=== PATIENT | male | born 1985 | race Caucasian/White ===

== ENCOUNTER 2017-12-28 16:18 | Emergency (ER) | payer SELFPAY ==
--- NOTE | 2017-12-28 17:58 | ED Physician Documentation ---
PD HPI HEENT - Stated complaint Stated Complaint: VOMITING/DAMON/RASH - Chief complaint Chief Complaint: Neuro - History obtained from History obtained from: Patient - History of Present Illness Timing - onset: Yesterday Timing - details: Gradual onset, Still present (noted rash on tip of nose initially, now with it left cheek of face. Has some pain in face/head left side. Denies feeling of eye irritation. Some general aches. Mild cough. Nausea with vomited couple of times. No diarrhea.), Waxing and waning Location: Nose (tip of nose and left facial cheek) Associated symptoms: Headache (left facial area and alevism to back of neck with the rash around that area.). No: Fever (but feeling of aches), Swollen nodes, Cough Similar symptoms before: Has not had sx before Recently seen: Not recently seen Review of Systems Constitutional: reports: Myalgias, Fatigue. denies: Fever Nose: denies: Rhinorrhea / runny nose, Congestion Throat: denies: Sore throat Respiratory: reports: Dyspnea, Cough, Wheezing GI: reports: Nausea. denies: Vomiting Skin: reports: Rash Musculoskeletal: denies: Neck pain, Back pain Neurologic: reports: Headache. denies: Confused, Altered mental status, Head injury PD PAST MEDICAL HISTORY - Past Medical History Past Medical History: Yes Cardiovascular: None Respiratory: None Neuro: Other Endocrine/Autoimmune: None GI: None : None HEENT: None Psych: None Musculoskeletal: None Derm: None - Past Surgical History Past Surgical History: Yes Ortho: Arthroscopic surgery HEENT: Other - Present Medications Home Medications: Ambulatory Orders Medication Instructions Recorded Confirmed Acyclovir 800 mg PO 5XD #30 tablet 12/28/17 Dexamethasone [Decadron] 4 mg PO DAILY #5 tablet 12/28/17 Gabapentin 600 mg PO TID PRN #30 tablet 12/28/17 Gabapentin [Neurontin] 600 mg PO TID 12/28/17 12/28/17 HYDROcod/ACETAM 5/325 [[place] 5/325] 1 tab PO Q6H PRN #15 tablet 12/28/17 Mupirocin 1 applic TP TID #15 oint...g. 12/28/17 Sumatriptan Succinate [Imitrex] 4 mg SQ PRN 12/28/17 - Allergies Allergies/Adverse Reactions: Allergies Allergy/AdvReac Type Severity Reaction Status Date / Time cephalexin [From Keflex] Allergy Severe Anaphylaxis Verified 12/28/17 16:31 - Social History Does the pt smoke?: No Smoking Status: Former smoker Does the pt drink ETOH?: Yes Does the pt have substance abuse?: Yes Substance Use and Type: Marijuana - Immunizations Immunizations are current?: Yes PD ED PE NORMAL - Vitals Vital signs reviewed: Yes - General General: Alert and oriented X 3, No acute distress, Well developed/nourished - HEENT HEENT: PERRL, EOMI, Ears normal, Pharynx benign, Other (left side tip of nose and left cheek with small patches of tender, red based, small vesicular rash, without connection between patches but is tender. ) - Neck Neck: Supple, no meningeal sign, No adenopathy - Cardiac Cardiac: RRR, No murmur - Respiratory Respiratory: No respiratory distress, Clear bilaterally - Abdomen Abdomen: Soft, Non tender - Derm Derm: Normal color, Warm and dry, No rash Results - Vitals Vitals: Oxygen O2 Source Room air PD MEDICAL DECISION MAKING - ED course Complexity details: reviewed results, considered differential (the rash patches on nose and cheek look herpetic or shingles. Consider patches of impetigo. Can get culture. But would treat as viral. No eye pain (concern since rash on left tip of the nose).), d/w patient Departure - Departure Disposition: 01 Home, Self Care Clinical Impression: Facial rash Headache Qualifiers: Headache type: unspecified Headache chronicity pattern: acute headache Intractability: not intractable Qualified Code(s): R51 - Headache Condition: Stable Record reviewed to determine appropriate education?: Yes Instructions: ED Cephalgia Unspecified, ED Shingles Follow-Up: [facility] [place] [Provider Group] Prescriptions: Acyclovir 800 mg PO 5XD #30 tablet Dexamethasone [Decadron] 4 mg PO DAILY #5 tablet Gabapentin 600 mg PO TID PRN #30 tablet PRN Reason: Pain HYDROcod/ACETAM 5/325 [[place] 5/325] 1 tab PO Q6H PRN #15 tablet PRN Reason: Pain Mupirocin 1 applic TP TID #15 oint...g. Comments: Cleanse the facial infections to 3 times a day with soap and water and apply mupirocin antibiotic ointment. I think the rash areas as well as the pain in the face and head are from a viral infection of either shingles or herpes. We did do a culture type test that will result in 2-3 days to verify this. Meanwhile we will treated with antiviral acyclovir 5 times a day for the next 6 days. Dexamethasone anti-inflammatory daily for 5 more days. Add hydrocodone if needed for pain. Off work for couple more days. Continue your other usual medications. Forms: Activity restrictions Discharge Date/Time: 12/28/17 19:29
[2017-12-28 18:39] VITALS: BP 111/73
[2017-12-28] MEDS ORDERED: DEXAMETHASONE 10 MG/ML VIAL PO STA (18:50)
[2017-12-28] MEDS ORDERED: IBUPROFEN 600 MG TABLET PO STA (18:50)
[2017-12-28] MEDS ORDERED: ACYCLOVIR 200 MG CAPSULE PO STA (18:50)
[2017-12-28] MEDS ORDERED: MUPIROCIN 2% OINT 1 GM TOP STA (18:50)
[2017-12-31 10:01] LABS: HSV 2 DNA NOT DETECTED; SOURCE FACE
== END 2017-12-28 19:29 | disposition home or self-care (01) ==
LOC: ED 16:18
DX: R21 Rash and other nonspecific skin eruption (principal); R51 Headache; Z87.891 Personal history of nicotine dependence
CPT/HCPCS: 87529; 99283; A9270

== ENCOUNTER 2018-01-25 23:19 | Emergency (ER) | payer OTHER ==
[2018-01-25] MEDS ORDERED: RABIES VACCINE 2.5 UNIT SYRINGE IM ONE (23:39)
[2018-01-25] MEDS ORDERED: RABIES IMMUNE GLOBULIN 300 UNITS/2 ML IM STA (23:39)
--- NOTE | 2018-01-25 23:47 | ED Physician Documentation ---
PD HPI ANIMAL BITE - Stated complaint Stated Complaint: BAT BITE TO SHOULDER - Chief complaint Chief Complaint: General - History obtained from History obtained from: Patient - History of Present Illness Details of the event: Other animal, Animal control notified, Other (bat) Timing - onset: Yesterday Timing - details: Abrupt onset Recently seen: Not recently seen - Additional information Additional information: Patient is a 32 year old male with no significant past medical history who is presenting to the emergency department after being exposed to a bat. Patient states that he was sleeping last nigh when he felt something on his shoulder. Patient states that he swatted at it and it stretched out its wings. patient reports that he turned on the lights and the bat came back towards him. He was able to catch what he thinks is the same bat and kill it. Patient was sleeping without a shirt but did not feel any bites. Review of Systems Constitutional: denies: Fever, Chills Eyes: reports: Reviewed and negative Ears: reports: Reviewed and negative Nose: reports: Reviewed and negative Throat: reports: Reviewed and negative Cardiac: reports: Reviewed and negative Respiratory: reports: Reviewed and negative GI: reports: Reviewed and negative : reports: Reviewed and negative Skin: reports: Reviewed and negative Musculoskeletal: reports: Reviewed and negative Neurologic: reports: Reviewed and negative Psychiatric: reports: Reviewed and negative Endocrine: reports: Reviewed and negative Immunocompromised: reports: Reviewed and negative PD PAST MEDICAL HISTORY - Past Medical History Cardiovascular: None Respiratory: None Neuro: Other Endocrine/Autoimmune: None GI: None : None HEENT: None Psych: None Musculoskeletal: None Derm: None - Past Surgical History Past Surgical History: Yes Ortho: Arthroscopic surgery HEENT: Other - Present Medications Home Medications: Ambulatory Orders Medication Instructions Recorded Confirmed Acyclovir 800 mg PO 5XD #30 tablet 12/28/17 Dexamethasone [Decadron] 4 mg PO DAILY #5 tablet 12/28/17 Gabapentin 600 mg PO TID PRN #30 tablet 12/28/17 Gabapentin [Neurontin] 600 mg PO TID 12/28/17 12/28/17 HYDROcod/ACETAM 5/325 [[place] 5/325] 1 tab PO Q6H PRN #15 tablet 12/28/17 Mupirocin 1 applic TP TID #15 oint...g. 12/28/17 Sumatriptan Succinate [Imitrex] 4 mg SQ PRN 12/28/17 - Allergies Allergies/Adverse Reactions: Allergies Allergy/AdvReac Type Severity Reaction Status Date / Time cephalexin [From Keflex] Allergy Severe Anaphylaxis Verified 12/28/17 16:31 - Social History Does the pt smoke?: No Smoking Status: Former smoker Does the pt drink ETOH?: Yes Does the pt have substance abuse?: Yes - Immunizations Immunizations are current?: Yes PD ED PE NORMAL - Vitals Vital signs reviewed: Yes - General General: Alert and oriented X 3 - HEENT HEENT: Atraumatic - Neck Neck: Supple, no meningeal sign - Cardiac Cardiac: RRR - Respiratory Respiratory: No respiratory distress - Abdomen Abdomen: Soft - Derm Derm: Normal color - Extremities Extremities: No deformity - Neuro Neuro: Alert and oriented X 3 Eye Opening: Spontaneous Motor: Obeys Commands Verbal: Oriented GCS Score: 15 - Psych Psych: Normal mood Results - Vitals Vitals: Vital Signs - 24 hr 01/25/18 23:30 Temperature 36.7 C Heart Rate 60 Respiratory 17 Rate Blood Pressure 142/80 H O2 Saturation 100 Oxygen O2 Source Room air PD MEDICAL DECISION MAKING - ED course Complexity details: reviewed old records, reviewed results, re-evaluated patient , considered differential, d/w patient ED course: Patient was seen and examined at bedside. There were no bite luz but due to the story patient was treated with rabies vaccine. dispatch was contacted and case was discussed with the . they stated that they should freeze the bat and animal control will come test it in the morning. Patient required no further inpatient work up and was stable for discharge with outpatient follow up. Departure - Departure Disposition: 01 Home, Self Care Clinical Impression: Exposure to bat without known bite Condition: Good Instructions: Rabies Vaccine suspension for injection, Rabies Immune Globulin human RIG solution for injection Follow-Up: primary,care provider [Other] Comments: Today you were treated with the rabies vaccine and immunoglobin. Today is considered day 0 and you will need the next dose(s) on day 3, 7,14 if the tests are performed on the bat and they are negative you will not need any further testing. 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
[2018-01-26 00:16] VITALS: BP 121/60
== END 2018-01-26 00:14 | disposition home or self-care (01) ==
LOC: ED 23:19
DX: Z20.3 Contact with and (suspected) exposure to rabies (principal); Z23 Encounter for immunization; Z87.891 Personal history of nicotine dependence
CPT/HCPCS: 1040M; 90376; 90471; 90675; 96372; 99283

== ENCOUNTER 2018-01-28 19:04 | Emergency (ER) | payer OTHER ==
[2018-01-28 19:25] VITALS: BP 107/59
[2018-01-28] MEDS ORDERED: RABIES VACCINE 2.5 UNIT SYRINGE IM ONE (20:22)
--- NOTE | 2018-01-28 20:26 | ED Physician Documentation ---
History of Present Illness - Stated complaint Stated Complaint: RABIES SHOT NEEDED - Chief complaint Chief Complaint: General - History obtained from History obtained from: Patient - History of Present Illness Timing: Other (He is working in [place], who lives in [place]. He was exposed to a bat. He got first rabies vaccine and immunoglobulin 3 days ago and returns as directed for vaccination. No specific complaints but needs a refill of his gabapentin. Animal control was contacted but never showed up to take the animal so no testing is available and he will have to complete the series.) Review of Systems Constitutional: reports: Reviewed and negative Cardiac: reports: Reviewed and negative Respiratory: reports: Reviewed and negative PD PAST MEDICAL HISTORY - Past Medical History Past Medical History: Yes Cardiovascular: None Respiratory: None Neuro: Other Endocrine/Autoimmune: None GI: None : None HEENT: None Psych: None Musculoskeletal: None Derm: None - Past Surgical History Past Surgical History: Yes Ortho: Arthroscopic surgery HEENT: Other - Present Medications Home Medications: Ambulatory Orders Medication Instructions Recorded Confirmed Acyclovir 800 mg PO 5XD #30 tablet 12/28/17 Dexamethasone [Decadron] 4 mg PO DAILY #5 tablet 12/28/17 Gabapentin 600 mg PO TID PRN #30 tablet 12/28/17 Gabapentin [Neurontin] 600 mg PO TID 12/28/17 12/28/17 HYDROcod/ACETAM 5/325 [[place] 5/325] 1 tab PO Q6H PRN #15 tablet 12/28/17 Mupirocin 1 applic TP TID #15 oint...g. 12/28/17 Sumatriptan Succinate [Imitrex] 4 mg SQ PRN 12/28/17 Gabapentin 600 mg PO TID #30 tablet 01/28/18 - Allergies Allergies/Adverse Reactions: Allergies Allergy/AdvReac Type Severity Reaction Status Date / Time cephalexin [From Keflex] Allergy Severe Anaphylaxis Verified 01/28/18 19:25 - Social History Does the pt smoke?: No Smoking Status: Never smoker Does the pt drink ETOH?: Yes Does the pt have substance abuse?: Yes - Immunizations Immunizations are current?: Yes - POLST Patient has POLST: No PD ED PE NORMAL - Vitals Vital signs reviewed: Yes - General General: Alert and oriented X 3, No acute distress - Neuro Neuro: Alert and oriented X 3, Normal speech - Psych Psych: Normal mood, Normal affect Results - Vitals Vitals: Vital Signs - 24 hr 01/28/18 19:20 Temperature 36 C L Heart Rate 69 Respiratory 16 Rate Blood Pressure 107/59 L O2 Saturation 98 Oxygen O2 Source Room air Departure - Departure Disposition: 01 Home, Self Care Clinical Impression: Rabies vaccine adverse reaction Qualifiers: Encounter type: initial encounter Qualified Code(s): T50.B95A - Adverse effect of other viral vaccines, initial encounter Condition: Good Record reviewed to determine appropriate education?: Yes Prescriptions: Gabapentin 600 mg PO TID #30 tablet Comments: Return or see a local physician for a third rabies vaccination on the , and of the fourth rabies vaccination on the .
== END 2018-01-28 20:32 | disposition home or self-care (01) ==
LOC: ED 19:04
DX: Z23 Encounter for immunization (principal); Z20.3 Contact with and (suspected) exposure to rabies
CPT/HCPCS: 90471; 96372; 99283

== ENCOUNTER 2018-02-02 18:56 | Emergency (ER) | payer OTHER ==
--- NOTE | 2018-02-02 21:49 | ED Physician Documentation ---
PD HPI ANIMAL BITE - Stated complaint Stated Complaint: RABIES VAC - Chief complaint Chief Complaint: General - History obtained from History obtained from: Patient - History of Present Illness Recently seen: Emergency Dept (here for next in series of rabies vaccines. No problems from initial 2 ones. No general symptoms. Was low risk exposure of a bat landed on him without bites.) PD PAST MEDICAL HISTORY - Past Medical History Cardiovascular: None Respiratory: None Neuro: Other Endocrine/Autoimmune: None GI: None : None HEENT: None Psych: None Musculoskeletal: None Derm: None - Past Surgical History Past Surgical History: Yes Ortho: Arthroscopic surgery HEENT: Other - Present Medications Home Medications: Ambulatory Orders Medication Instructions Recorded Confirmed Acyclovir 800 mg PO 5XD #30 tablet 12/28/17 Dexamethasone [Decadron] 4 mg PO DAILY #5 tablet 12/28/17 Gabapentin 600 mg PO TID PRN #30 tablet 12/28/17 Gabapentin [Neurontin] 600 mg PO TID 12/28/17 12/28/17 HYDROcod/ACETAM 5/325 [[place] 5/325] 1 tab PO Q6H PRN #15 tablet 12/28/17 Mupirocin 1 applic TP TID #15 oint...g. 12/28/17 Sumatriptan Succinate [Imitrex] 4 mg SQ PRN 12/28/17 Gabapentin 600 mg PO TID #30 tablet 01/28/18 - Allergies Allergies/Adverse Reactions: Allergies Allergy/AdvReac Type Severity Reaction Status Date / Time cephalexin [From Keflex] Allergy Severe Anaphylaxis Verified 01/28/18 19:25 - Social History Does the pt smoke?: No Smoking Status: Never smoker Does the pt drink ETOH?: Yes Does the pt have substance abuse?: Yes - Immunizations Immunizations are current?: Yes - POLST Patient has POLST: No Results - Vitals Vitals: Oxygen O2 Source Room air PD MEDICAL DECISION MAKING - ED course Complexity details: considered differential (getting the next in series of rabies vaccinations as previously delineated. No general symptoms from vaccine obvious. ), d/w patient Departure - Departure Disposition: 01 Home, Self Care Clinical Impression: Exposure to bat without known bite, Need for rabies vaccination Condition: Stable Record reviewed to determine appropriate education?: Yes Instructions: Rabies Comments: Tylenol or ibuprofen if needed for pains. Return for the fourth in the series in a week as previously outlined. Recheck if other problems develop. Discharge Date/Time: 02/02/18 22:04
[2018-02-02] MEDS ORDERED: RABIES VACCINE 2.5 UNIT SYRINGE IM ONE (21:52)
[2018-02-02 22:05] VITALS: BP 105/48
== END 2018-02-02 22:04 | disposition home or self-care (01) ==
LOC: ED 18:56
DX: Z20.3 Contact with and (suspected) exposure to rabies (principal); Z23 Encounter for immunization
CPT/HCPCS: 90471; 96372; 99283

== ENCOUNTER 2018-02-09 20:51 | Emergency (ER) | payer OTHER ==
--- NOTE | 2018-02-09 20:57 | ED Physician Documentation ---
ED Addendum - Addendum Addendum: 02/09/18 20:59 He is here for the fourth of the series post exposure rabies vaccine. He has not had any complications from the prior vaccinations (no rash, hives, local reaction, other problems.) He will get his last vaccine and follow-up with his primary if needed.
[2018-02-09] MEDS ORDERED: RABIES VACCINE 2.5 UNIT SYRINGE IM ONE (20:59)
[2018-02-09 21:58] VITALS: BP 135/81
== END 2018-02-09 21:57 | disposition home or self-care (01) ==
LOC: ED 20:51
DX: Z20.3 Contact with and (suspected) exposure to rabies (principal); Z23 Encounter for immunization
CPT/HCPCS: 90471; 96372; 99283

== ENCOUNTER 2018-03-05 19:07 | Emergency (ER) | payer SELFPAY ==
--- NOTE | 2018-03-05 20:32 | ED Physician Documentation ---
PD HPI HEADACHE - Stated complaint Stated Complaint: SWEAT/DAMON/DALTON - Chief complaint Chief Complaint: Neuro - History obtained from History obtained from: Patient - History of Present Illness Timing - onset: Yesterday Timing - onset during: Rest Timing - details: Gradual onset, Now resolved Location: Front Associated symptoms: No: Fever, Nausea, Vomiting Improved by: Rest, Meds Similar symptoms before: Work up / diagnostics, Treatment Recently seen: Not recently seen - Additional information Additional information: patient is a 32 year old male with a history of migraines who is here working. Patient states that he had a migraine yesterday but it resolved with imitrix today. patient states that he came in because he needed a work note. Patient states that he is feeling well today. Review of Systems Ten Systems: 10 systems reviewed and negative PD PAST MEDICAL HISTORY - Past Medical History Past Medical History: Yes Cardiovascular: None Respiratory: None Neuro: Other Endocrine/Autoimmune: None GI: None : None HEENT: Other Psych: None Musculoskeletal: None Derm: None Other Past Medical History: states brain tumor, Right eye "repair." - Past Surgical History Past Surgical History: Yes Ortho: Arthroscopic surgery HEENT: Other - Present Medications Home Medications: Ambulatory Orders Medication Instructions Recorded Confirmed Acyclovir 800 mg PO 5XD #30 tablet 12/28/17 Dexamethasone [Decadron] 4 mg PO DAILY #5 tablet 12/28/17 Gabapentin 600 mg PO TID PRN #30 tablet 12/28/17 Gabapentin [Neurontin] 600 mg PO TID 12/28/17 12/28/17 HYDROcod/ACETAM 5/325 [[place] 5/325] 1 tab PO Q6H PRN #15 tablet 12/28/17 Mupirocin 1 applic TP TID #15 oint...g. 12/28/17 Sumatriptan Succinate [Imitrex] 4 mg SQ PRN 12/28/17 Gabapentin 600 mg PO TID #30 tablet 01/28/18 Gabapentin [Neurontin] 300 mg PO TID #10 capsule 03/05/18 - Allergies Allergies/Adverse Reactions: Allergies Allergy/AdvReac Type Severity Reaction Status Date / Time cephalexin [From Keflex] Allergy Severe Anaphylaxis Verified 03/05/18 19:28 - Social History Does the pt smoke?: No Smoking Status: Never smoker Does the pt drink ETOH?: Yes Does the pt have substance abuse?: Yes Substance Use and Type: Marijuana - Immunizations Immunizations are current?: Yes - POLST Patient has POLST: No PD ED PE NORMAL - Vitals Vital signs reviewed: Yes - General General: Alert and oriented X 3, No acute distress - HEENT HEENT: Atraumatic - Cardiac Cardiac: RRR - Respiratory Respiratory: No respiratory distress - Abdomen Abdomen: Non distended - Derm Derm: Normal color, No rash - Extremities Extremities: No deformity - Neuro Neuro: Alert and oriented X 3, No motor deficit, Normal speech Eye Opening: Spontaneous Motor: Obeys Commands Verbal: Oriented GCS Score: 15 Results - Vitals Vitals: Vital Signs - 24 hr 03/05/18 03/05/18 19:25 21:03 Temperature 36.0 C L 36.7 C Heart Rate 92 89 Respiratory 16 20 Rate Blood Pressure 126/79 115/76 O2 Saturation 96 97 Oxygen O2 Source Room air PD MEDICAL DECISION MAKING - ED course Complexity details: reviewed old records, considered differential, d/w patient ED course: Patient was seen and examined at bedside. patient was well appearing and in no distress. Patient required no intervention at this time and was stable for discharge with outpatient follow up. Departure - Departure Disposition: 01 Home, Self Care Clinical Impression: Headache, Migraine Condition: Good Instructions: ED Headache Migraine Follow-Up: primary,care provider [Other] - As Needed Prescriptions: Gabapentin [Neurontin] 300 mg PO TID #10 capsule Comments: You should try to stay well hydrated and get plenty of sleep as those can be two of the major triggers of migraines. You should follow up with your doctor if your symptoms become more frequent. You may return to the emergency department at any time for new, worsening or uncontrollable symptoms. Forms: Activity restrictions Discharge Date/Time: 03/05/18 21:03
[2018-03-05 21:04] VITALS: BP 115/76
== END 2018-03-05 21:03 | disposition home or self-care (01) ==
LOC: ED 19:07
DX: G43.909 Migraine, unspecified, not intractable, without status migrainosus (principal)
CPT/HCPCS: 99283; 99284

== ENCOUNTER 2018-04-29 13:06 | Emergency (ER) | payer OTHER ==
--- NOTE | 2018-04-29 14:07 | ED Physician Documentation ---
History of Present Illness - Stated complaint Stated Complaint: RT SIDE BODY PX - Chief complaint Chief Complaint: General - History obtained from History obtained from: Patient - History of Present Illness Timing: Today (He works as a boat yard, he had a heavy heavy door fall on the back of his Right elbow and then hits over the back of the right hip earlier today and has moderate pain but declines pain medication. He was seen at an urgent care and referred here for x-rays. No head or neck injury. He is able to walk and bear weight and Declines pain medication.) Review of Systems Constitutional: reports: Reviewed and negative Cardiac: reports: Reviewed and negative Respiratory: reports: Reviewed and negative PD PAST MEDICAL HISTORY - Past Medical History Past Medical History: No Cardiovascular: None Respiratory: None Neuro: None Endocrine/Autoimmune: None GI: None : None HEENT: None Psych: None Musculoskeletal: None Derm: None - Past Surgical History Past Surgical History: Yes Ortho: Arthroscopic surgery HEENT: Other - Present Medications Home Medications: Ambulatory Orders Medication Instructions Recorded Confirmed Acyclovir 800 mg PO 5XD #30 tablet 12/28/17 Dexamethasone [Decadron] 4 mg PO DAILY #5 tablet 12/28/17 Gabapentin 600 mg PO TID PRN #30 tablet 12/28/17 Gabapentin [Neurontin] 600 mg PO TID 12/28/17 12/28/17 HYDROcod/ACETAM 5/325 [[place] 5/325] 1 tab PO Q6H PRN #15 tablet 12/28/17 Mupirocin 1 applic TP TID #15 oint...g. 12/28/17 Sumatriptan Succinate [Imitrex] 4 mg SQ PRN 12/28/17 Gabapentin 600 mg PO TID #30 tablet 01/28/18 Gabapentin [Neurontin] 300 mg PO TID #10 capsule 03/05/18 Gabapentin 600 mg PO BID #30 tablet 04/29/18 Sumatriptan Succinate [Imitrex] 6 mg SQ ONCE PRN #8 cartridge 04/29/18 - Allergies Allergies/Adverse Reactions: Allergies Allergy/AdvReac Type Severity Reaction Status Date / Time cephalexin [From Keflex] Allergy Severe Anaphylaxis Verified 03/05/18 19:28 - Social History Does the pt smoke?: Yes Smoking Status: Current every day smoker Does the pt drink ETOH?: Yes Does the pt have substance abuse?: No - Immunizations Immunizations are current?: Yes - POLST Patient has POLST: No PD ED PE NORMAL - Vitals Vital signs reviewed: Yes - General General: Alert and oriented X 3, No acute distress - HEENT HEENT: PERRL, EOMI - Neck Neck: Supple, no meningeal sign, No bony TTP - Extremities Extremities: Other (Mild tenderness over the posterior supracondylar area without limited range of motion on the right or ecchymosis. He does have a little ecchymosis in the right paralumbar area without any tenderness or rib tenderness or hip tenderness.) - Neuro Neuro: Alert and oriented X 3, Normal speech Results - Vitals Vitals: Vital Signs - 24 hr 04/29/18 04/29/18 13:15 14:55 Temperature 36.4 C L 36.5 C Heart Rate 96 64 Respiratory 18 17 Rate Blood Pressure 110/70 105/61 O2 Saturation 97 99 Oxygen O2 Source Room air - Rads (name of study) R elbow and hip XRs Radiology: EMP read contemporaneously (NAD) PD MEDICAL DECISION MAKING - ED course ED course: He needed refills of his Imitrex and gabapentin as well and limited refills for these were given. Primary care follow-up was Advised. - Sepsis Event Vital Signs: Vital Signs - 24 hr 04/29/18 04/29/18 13:15 14:55 Temperature 36.4 C L 36.5 C Heart Rate 96 64 Respiratory 18 17 Rate Blood Pressure 110/70 105/61 O2 Saturation 97 99 Oxygen O2 Source Room air Departure - Departure Disposition: 01 Home, Self Care Clinical Impression: Contusion of elbow, right Qualifiers: Encounter type: initial encounter Qualified Code(s): S50.01XA - Contusion of right elbow, initial encounter Back contusion Qualifiers: Encounter type: initial encounter Laterality: right Qualified Code(s): S20.221A - Contusion of right back wall of thorax, initial encounter Condition: Good Record reviewed to determine appropriate education?: Yes Instructions: ED Contusion Back Follow-Up: [facility] [Provider Group] [facility] [Provider Group] [facility] [Provider Group] Prescriptions: Gabapentin 600 mg PO BID #30 tablet Sumatriptan Succinate [Imitrex] 6 mg SQ ONCE PRN #8 cartridge PRN Reason: Headache Comments: Followup with your physician in 1 week if not better Forms: Activity restrictions Discharge Date/Time: 04/29/18 15:00
--- NOTE | 2018-04-29 14:41 | XRAY Preliminary Report ---
Exam: XR ELBOW 3 VIEW RT IMPRESSION: Normal elbow radiography. [facility] SITE ID: [id number]
--- NOTE | 2018-04-29 14:41 | XRAY Report ---
EXAM: RIGHT ELBOW RADIOGRAPHY EXAM DATE: 04/29/2018 02:28 PM. CLINICAL HISTORY: Right elbow pain. COMPARISON: None. TECHNIQUE: 3 views. FINDINGS: Bones: Normal. No fractures or bone lesions. Joints: Normal. No effusion. No subluxation. Soft Tissues: Normal. No soft tissue swelling. IMPRESSION: Normal elbow radiography. [facility] Referring Provider Line: [phone] SITE ID: [id number]
--- NOTE | 2018-04-29 14:43 | XRAY Preliminary Report ---
Exam: XR HIP W/PELVIS 2-3V RT IMPRESSION: No acute findings. Small paralabral calcification is seen, nonspecific but potentially re lated to underlying chronic labral pathology. [facility] SITE ID: [id number]
--- NOTE | 2018-04-29 14:43 | XRAY Report ---
EXAM: RIGHT HIP AND PELVIS RADIOGRAPHY EXAM DATE: 04/29/2018 02:27 PM. HISTORY: Right hip pain. COMPARISONS: None. TECHNIQUE: 1 view of the pelvis and 1 view of the hip. FINDINGS: Bones: No fracture or bone lesion is demonstrated. Joints: Focal paralabral calcification is seen laterally. There is no significant joint space narrowi ng. No subchondral sclerosis or cystic changes are seen. Soft Tissues: Normal. No soft tissue swelling. IMPRESSION: No acute findings. Small paralabral calcification is seen, nonspecific but potentially re lated to underlying chronic labral pathology. [facility] Referring Provider Line: [phone] SITE ID: [id number]
[2018-04-29 14:56] VITALS: BP 105/61
== END 2018-04-29 15:00 | disposition home or self-care (01) ==
LOC: ED 13:06
DX: S50.01XA Contusion of right elbow, initial encounter (principal); S20.221A Contusion of right back wall of thorax, initial encounter; W20.8XXA Other cause of strike by thrown, projected or falling object, initial encounter; Y92.62 Dock or shipyard as the place of occurrence of the external cause; Y99.0 Civilian activity done for income or pay; F17.200 Nicotine dependence, unspecified, uncomplicated
CPT/HCPCS: 99283

== ENCOUNTER 2018-06-11 03:21 | Emergency (ER) | payer BC ==
--- NOTE | 2018-06-11 04:28 | ED Physician Documentation ---
History of Present Illness - Stated complaint Stated Complaint: PRESCRIP REFILL - Chief complaint Chief Complaint: General - History obtained from History obtained from: Patient - History of Present Illness Timing: How many days ago (2) Pain level max: 8 Pain level now: 0 - Additonal information Additional information: had migraine DAMON 2 days ago with nausea, vomiting. this has resolved completely. he missed work because of the headache, presents requesting work excuse as well as refill for imitrex. says he recently returned from [place] where he accidentally left the imitrex prescribed last month from this ED. 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 Review of Systems GI: reports: Nausea (resolved), Vomiting (resolved). denies: Abdominal Pain Neurologic: reports: Headache (resolved) PD PAST MEDICAL HISTORY - Past Medical History Past Medical History: Yes Cardiovascular: None Respiratory: None Neuro: Migraines Endocrine/Autoimmune: None GI: None : None HEENT: None Psych: None Musculoskeletal: None Derm: None - Past Surgical History Past Surgical History: Yes Ortho: Arthroscopic surgery HEENT: Other - Present Medications Home Medications: Ambulatory Orders Medication Instructions Recorded Confirmed Acyclovir 800 mg PO 5XD #30 tablet 12/28/17 Dexamethasone [Decadron] 4 mg PO DAILY #5 tablet 12/28/17 Gabapentin 600 mg PO TID PRN #30 tablet 12/28/17 Gabapentin [Neurontin] 600 mg PO TID 12/28/17 12/28/17 HYDROcod/ACETAM 5/325 [Beals 5/325] 1 tab PO Q6H PRN #15 tablet 12/28/17 Mupirocin 1 applic TP TID #15 oint...g. 12/28/17 Sumatriptan Succinate [Imitrex] 4 mg SQ PRN 12/28/17 Gabapentin 600 mg PO TID #30 tablet 01/28/18 Gabapentin [Neurontin] 300 mg PO TID #10 capsule 03/05/18 Gabapentin 600 mg PO BID #30 tablet 04/29/18 Sumatriptan Succinate [Imitrex] 6 mg SQ ONCE PRN #8 cartridge 04/29/18 Gabapentin 600 mg PO BID PRN #20 tablet 06/11/18 Sumatriptan Succinate [Imitrex] 6 mg SQ ONCE PRN #10 pen.[email or web address] 06/11/18 - Allergies Allergies/Adverse Reactions: Allergies Allergy/AdvReac Type Severity Reaction Status Date / Time cephalexin [From Keflex] Allergy Severe Anaphylaxis Verified 06/11/18 03:27 - Social History Does the pt smoke?: Yes Smoking Status: Current every day smoker Does the pt drink ETOH?: Yes Does the pt have substance abuse?: No - Immunizations Immunizations are current?: Yes - POLST Patient has POLST: No PD ED PE NORMAL - Vitals Vital signs reviewed: Yes - General General: Alert and oriented X 3, No acute distress, Well developed/nourished - HEENT HEENT: PERRL, EOMI - Neuro Neuro: Alert and oriented X 3, 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 provided rx for imitrex and gabapentin (he mentioned he takes gabapentin; I asked him if he has enough of this rx, says he has one left, and thus I offered to give new rx for this, as well). I instructed him to work on arranging regular out-patient f/u for his regularly prescribed medications. patient was pleasant and cooperative, did not request medications except for imitrex. - Sepsis Event Vital Signs: Oxygen O2 Source Room air Departure - Departure Disposition: 01 Home, Self Care Clinical Impression: Migraine Condition: Good Instructions: ED Cephalgia Unspecified, Imitrex Follow-Up: [facility] [Provider Group] [facility] [Provider Group] Prescriptions: Gabapentin 600 mg PO BID PRN #20 tablet PRN Reason: Pain Sumatriptan Succinate [Imitrex] 6 mg SQ ONCE PRN #10 pen.injctr PRN Reason: Headache Discharge Date/Time: 06/11/18 05:10
[2018-06-11 05:10] VITALS: BP 130/74
== END 2018-06-11 05:10 | disposition home or self-care (01) ==
LOC: ED 03:21
DX: G43.909 Migraine, unspecified, not intractable, without status migrainosus (principal); F17.200 Nicotine dependence, unspecified, uncomplicated
CPT/HCPCS: 99283